=== PATIENT | female | born 1965 | race Two or more races ===

== ENCOUNTER → 2024-12-07 | Outpatient (CLI) | payer MEDICAID, SELFPAY ==
--- NOTE | 2024-12-07 13:40 | XR_ITS ---
Examination: Bone densitometry Date and time of exam:08/09/2024 1333 hours INDICATIONS: Menopause age 50 Technique: Lumbar spine and hip total bone mineralization values of an calculated. Peak reference and age match control results have been displayed. Findings: Lumbar spine total bone mineralization is0.776 gm/cm2. This is 2.5 standard deviations below peak reference. This is 1.0 standard deviations below age-matched controls. Hip total bone mineralization is 0.932 gm/cm2 This is 0.2 standard deviations below peak reference. This is 0.7 standard deviations above age-matched controls Impression: There is osteoporosis based on lumbar spine measurements. There is osteopenia based on hip measurements
== END | disposition home or self-care (01) ==
PROVIDERS: PCP Physician Assistant; Referring Provider Physician Assistant; Visit Provider Physician Assistant
DX: M81.0 Age-related osteoporosis without current pathological fracture (principal); M85.88 Other specified disorders of bone density and structure, other site
CPT/HCPCS: 77080

== ENCOUNTER → 2025-01-05 | Outpatient (CLI) | payer MEDICAID, SELFPAY ==
--- NOTE | 2025-01-05 13:30 | XR_ITS ---
Examination: CT abdomen with intravenous contrast CT pelvis with intravenous contrast 2-D coronal reconstructions 2-D sagittal reconstructions Date and time of exam:January 05, 2025 1412 hours Comparison July 25, 2009 INDICATIONS: Right-sided flank pain several months, history kidney stones. CTDI: vol (mGy) 18.8 DLP: (mGycm) 644 Technique: Multiple axial sections of the abdomen and pelvis have been obtained. 64 slice high-resolution scanner used. 3 mm axial sections have been obtained, post intravenous injection 60 cc [id number] 2-D sagittal, coronal reconstructions obtained. Low dose protocols were performed. One or more of the following dose reduction techniques were used; automated exposure control, adjustment of the mA and/or KV according to patient size, use of iterative reconstruction technique. Findings: No focal liver or splenic lesions No gallstones No pancreatic or adrenal mass 1 mm 3 mm nonobstructing left renal calculi, no hydronephrosis or ureteral calculi Normal appendix No bowel obstruction Retroverted uterus No adnexal mass No bladder mass or bladder calculi Moderate distention posteriorly L5-S1 IMPRESSION: Nonobstructing left renal calculi No hydronephrosis or ureteral calculi Normal appendix No bladder mass or bladder calculi
== END | disposition home or self-care (01) ==
PROVIDERS: Referring Provider Physician Assistant; Visit Provider Physician Assistant
DX: N20.0 Calculus of kidney (principal)
CPT/HCPCS: 74177; A4649; Q9967